=== PATIENT | male | born 1945 | race Caucasian/White ===

== ENCOUNTER 2016-11-04 18:10 | Inpatient (IN) | payer OTHER, MEDICARE ==
[~2016-11-04] VITALS: Ht 165.1 cm; Wt 123.0 kg
--- NOTE | ~2016-11-04 | LTR ---
PATIENT'S NAME: SIMEON FOWLER [facility] AGE: 71 Y [address] ROOM: [address] [address] LOCATION: [facility] ADMIT DATE: 11/04/2016 Letter DISCHARGE DATE: FAMILY PHYSICIAN: Low Alston MD ATTENDING PHYSICIAN: ESSENCE GODFREY November 08, 2016 To whom it May Concern: Re: SIMEON FOWLER whose date of is 1945 has been hospitalized from the dates of 11/04/2016 to current. His diagnoses include encephalopathy and grade 3 astrocytoma. The patient is having erratic behaviors. He has been deemed unable to make his own medical decisions due to lack of cognitive capacity. For his own safety and sustainability, we are requesting guardianship to be placed as soon as possible. Mr. Fowler will need 24-hour caregivers likely in the form of retirement facility setting. Sincerely, CHRISTIANO Jackson/kevon /[id number]
--- NOTE | ~2016-11-04 | PN ---
PATIENT'S NAME: SIMEON STERLING [facility] AGE: 71 Y [address] ROOM: [id number] [place], [place] [address] [place] [facility] [place] DATE: 11/04/2016 [facility] Progress Notes DISCHARGE DATE: FAMILY PHYSICIAN: Low Alston MD ATTENDING PHYSICIAN: ESSENCE GODFREY Corrected Patient account information per dictator 11/16/16 AO DATE OF SERVICE: 11/06/2016 REASON FOR CONSULTATION: Competency. SUBJECTIVE: This is a 71-year-old male initially under EPC at [facility], but in view of his cellulitis and multiple medical issues, was transferred to the [facility]. The patient has glioblastoma multiforme and he has been intermittently compliant with his medications. He states that he has no problems and he is ready to go home today. He has been agitated on and off and has been very impulsive. Apparently, he has not been compliant with his outpatient treatment plan. He has significant cellulitis of his legs and yet believes that he does not need any help and would like to be discharged. It was also told that he has been diagnosed with astrocytoma grade 3 brain tumor. He is irritable and agitated and requires one-to-one nursing supervision even in an inpatient care here. During my interview, he is dismissive of me and does not really cooperate. He gets frequently agitated. He does not understand why he needs to stay in the hospital. It appears that he has very poor insight into his symptoms and illness at this time. OBJECTIVE: He is awake, alert, sitting in the chair. He is irritable and agitated. He has been impulsive and agitated since the day of admission requiring one-to- one. He does appear to be somewhat paranoid. He denies any self-harm thoughts if not answer about cognition questions. His insight and judgment are impaired. 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 PLAN: We will continue the current treatment plan. However, I believe the patient is incapable of making decisions for self. I would like to have his daughter be assigned the power of employment attorney as the patient is willing to have the daughter be assigned the power of employment attorney and the power of employment attorney should be invoked, otherwise so we may have to get guardianship. I do not believe the PATIENT'S NAME: SIMEON STERLING [facility] AGE: 71 Y [address] ROOM: [place] [address] [place] [facility] [place] DATE: 11/04/2016 [facility] Progress Notes DISCHARGE DATE: FAMILY PHYSICIAN: Low Alston MD ATTENDING PHYSICIAN: ESSENCE GODFREY patient can live independently and he needs to be supervised / in the community for his safety and others. He does not need to be hospitalized to inpatient psychiatric unit at this time. Please give me a call if you have any questions. MD CHERRIE GARNETT/kevon /[id number] Corrected Patient account information per dictator 11/16/16 AO d: 11/06/162003 t: 12/04/16 09, PROGRESS NOTES
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
--- NOTE | ~2016-11-04 | ER ---
[facility] 71 Y [address] ROOM: [place] [address] LOCATION: [facility] ADMIT DATE: 11/04/2016 ER/Outpatient Report DISCHARGE DATE: FAMILY PHYSICIAN: PHYSICIAN, UNKNOWN ATTENDING PHYSICIAN: ESSENCE GODFREY Time of Arrival: 1801 hours. Time of Evaluation: 1801 hours. CHIEF COMPLAINT: Leg ulcers. HISTORY OF PRESENT ILLNESS: The patient is a 71-year-old male, who presents to the emergency department today with chief complaint of leg ulcers. Reports this started 5 days prior to arrival. The patient is currently inpatient at [facility] apparently with some agitated behavior. The patient does also have history of brain tumor with excisional brain biopsy. The ulcers have progressive . He has blisters and erythema in his bilateral lower extremities. He denies history of similar episodes in the past. PAST MEDICAL HISTORY: Brain tumor, basal cell carcinoma, coronary artery disease, hypertension, dyslipidemia. PAST SURGICAL HISTORY: Excisional brain biopsy, appendectomy, back, hemorrhoid, CABG 8 years ago. SOCIAL HISTORY: The patient denies any tobacco, alcohol, or illicit drug use. ALLERGIES: NO KNOWN DRUG ALLERGIES. MEDICATIONS: Please see list. PRIMARY CARE DOCTOR: In [place]. REVIEW OF SYSTEMS: All systems are reviewed by myself and are negative with the exception of those discussed in the HPI and past medical history. PHYSICAL EXAMINATION: [facility]GE[facility] 71 Y [address] ROOM: [place] [address] LOCATION: [facility] ADMIT DATE: 11/04/2016 ER/Outpatient Report DISCHARGE DATE: FAMILY PHYSICIAN: PHYSICIAN, UNKNOWN ATTENDING PHYSICIAN: ESSENCE GODFREY VITAL SIGNS: Weight 117.6 kg, blood pressure 241/106, pulse 101, respiratory rate 16, temperature 98.3, oxygen saturation 95% on room air. GENERAL: The patient is a 71-year-old male, who appears stated age, in no acute distress at this time. Obese. HEENT: Normocephalic, atraumatic. Pupils are equal, round, and reactive to light and accommodation. Extraocular motions are intact. Nares are patent bilaterally. NECK: Supple. There is no nuchal rigidity. CARDIOVASCULAR: Tachycardic, no murmurs, rubs, or gallops. LUNGS: Clear to auscultation bilaterally. No wheezes, rales, or rhonchi. ABDOMEN: Soft, nontender, and nondistended. No rebound, rigidity, or guarding. MUSCULOSKELETAL: The patient moves all 4 extremities. NEUROLOGICAL: GCS of 15. Alert and oriented to person, place, time, not president. SKIN: The patient has bilateral lower extremities with erythematous rash and pustules noted. There are also larger areas, that appear fluid-filled. LABORATORY DATA AND X-RAYS: Labs and x-rays are obtained. Lactate 4.3. Procalcitonin 0.05. CBC: White blood cell count 22.5, otherwise unremarkable. CMP is unremarkable except for glucose 290, BUN 37, creatinine 1.3. AST is 42, ALT is 83. IMPRESSION: 1. Acute bilateral lower extremity cellulitis. 2. Suicidal ideation. 3. History of brain tumor. 4. Initial visit. EMERGENCY DEPARTMENT COURSE: The patient was brought back to the examination room. Seen and evaluated by myself. IV is established. Laboratory analysis and imaging are obtained as described above. I have discussed results with the patient. I have contacted Dr. Gdofrey with the Hospitalist Service. He has seen and evaluated the patient here in the emergency department. I have initiated a 4.5 g of Zosyn IV as well as a 2 g of vancomycin IV. He was given a liter of normal saline. The patient is agreeable with plan without further questions at this time. DISPOSITION: The patient is admitted under the care of Hospitalist Service, Dr. Godfrey, in stable condition. PATIENT'S NAME: SIMEON STERLING [facility] AGE: 71 Y [address] ROOM: [address] [place] [id number] LOCATION: [facility] ADMIT DATE: 11/04/2016 ER/Outpatient Report DISCHARGE DATE: FAMILY PHYSICIAN: PHYSICIAN, UNKNOWN ATTENDING PHYSICIAN: ESSENCE GODFREY DO KJR/medl /[id number] P d: 11/05/16 0208 t: 11/10/16 1322, OUTPATIENT REPORT
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
--- NOTE | ~2016-11-04 | DS ---
PATIENT'S NAME: SIMEON STERLING [facility] AGE: 71 Y [address] ROOM: [id number] [place] [address] LOCATION: [facility] [place] ADMIT DATE: 11/07/2016 Discharge Summary DISCHARGE DATE: 11/18/2016 FAMILY PHYSICIAN: Low Alston MD ATTENDING PHYSICIAN: Darrion Vera DISCHARGE DIAGNOSES: 1. Bilateral lower extremity cellulitis-strep Stenotrophomonas maltophilia and Staph epi. 2. Major depression disorder with suicidal ideation. 3. Grade III astrocytoma. 4. Acute encephalopathy. 5. Diabetes mellitus type 2. 6. Fever. CONSULTANTS: Joleen Tran APRN, Palliative Care, Ethics consultation, Psychiatry. HOSPITAL COURSE: Please refer to admitting history and physical as dictated by Dr. Vera. Briefly, the patient was admitted to [facility] after he was sent to [facility] for suicidal ideation under EPC. While at [facility], he was found to have bilateral lower extremity cellulitis, hypertension, and a grade III astrocytoma. He was started on vancomycin and Zosyn for IV antibiotics. Sliding scale was used for his diabetes. His home medications were restarted. Wound Care followed the patient for his lower extremity cellulitis. MRI of the brain was ordered; however, the patient refused; therefore, it was not able to be obtained. Psych consult was placed to Dr. Muñoz and he was found to be incapable of making decisions for himself. The daughter Gregorio Jasso was made the [id number] after obtaining documents. It was recommended that he have 24 care. He was started on Seroquel. Due to his brain tumor, grade III astrocytoma, and the encephalopathy, it was not felt as though he is able to make his own decisions. The patient was agitated with the cares throughout his stay. The patient began to refuse all medications and cares by providers. He was refusing to eat. He pulled out his IV; therefore, there was no further IV access for cares. Without the IV access, he was started on doxycycline 100 mg p.o. b.i.d. for his bilateral lower extremity cellulitis. Wound cultures of his legs did grow Stenotrophomonas maltophilia and Staph epi. Anesthesia was consulted and was given Haldol 5 mg IM as well as Haldol Decanoate 50 mg IM and Zyprexa. He was then started on Rocephin IM. The patient would take it sporadically. Palliative Care was consulted. Palliative Care did work closely with the family throughout his stay. ROSITA Perkins did not feel as though she wanted forced medications or treatment if he was refusing, we could continue to offer it however. Ethics consult was obtained due to the difficulty with finding placement for the patient as well PATIENT'S NAME: SIMEON STERLING [facility] AGE: 71 Y [address] ROOM: [address] [address] LOCATION: [facility] [place] ADMIT DATE: 11/07/2016 Discharge Summary DISCHARGE DATE: 11/18/2016 FAMILY PHYSICIAN: Low Alston MD ATTENDING PHYSICIAN: Darrion Vera as concerns for sepsis and psychiatric needs. It was recommended by the Ethics team to clarify the brain tumor diagnosis and prognosis, talk with the daughter about goals of treatment, and explore the potential for involvement of hospice. His grade III astrocytoma was found to be aggressive. He had been refusing treatment for the brain tumor. On 11/18/2016, the patient was having suicidal ideation. Palliative Care did again discuss with the POA the situation and the patient refusing home medications and she is agreeing to stop medications except for comfort meds. After discussion with the Palliative Care team and hospitalist, it was felt as though he was stable to transfer to [facility] with hospice for end-of-life cares. The patient had stated numerous times he wanted to be able to get up and walk around as able; therefore, it was felt as though this was the best option for him to give him some quality of life given his terminal diagnosis. Palliative Care will continue to follow while at [facility] with hospice. At the time of discharge, the patient had been refusing to eat and take all medications or cooperate with cares. Dr. Contreras did speak wit his daughter Yamileth on the day of transfer to [facility]. LABORATORY DATA: Sodium remained within normal limits, potassium ranged from 3.1 to 4.0, BUN 15 to 37, creatinine 1.1 to 1.4, albumin 2.1, alk phos 104, AST 25, ALT 51, phos 3.8, GFR 54, upon admit, 59, most recent prior to discharge, CRP 5.63, WBC 7.4 to 22.5, hemoglobin 12.0 to 13.4, hematocrit 35.5 to 40.3, and platelets 138. ESR 54. UA nitrites negative, protein 100, glucose 250, ketones 5, and bacteria few. Left lower extremity wound cultures grew Stenotrophomonas maltophilia and Staphylococcus epidermidis. Blood cultures, no growth at 5 days. RADIOLOGY REPORTS: Chest x-ray done 11/04/2016 showed past cardiac surgery, no vascular congestion, linear atelectasis or scarring at the left costophrenic angle. DISCHARGE INSTRUCTIONS: The patient will be transferred to [facility]. Diet as tolerated. Activity as tolerated. Palliative Care to continue to follow. Hospice consult for end-of-life cares. DISCHARGE MEDICATIONS: All medications were discontinued except for those to provide comfort: 1. Ativan 2 mg rectally q.2 h. p.r.n. seizures. 2. Tylenol 650 mg p.o. q.4 h. p.r.n. pain or fever. 3. Roxanol 20 mg/mL, 5-10 mg p.o./sublingual every 1 hour p.r.n. pain or shortness of breath. Thank you for allowing us to participate in the care of this patient as he has been hospitalized at [facility]. Time spent coordinating discharge was 35 minutes. PATIENT'S NAME: SIEMON STERLING [facility] AGE: 71 Y [address] ROOM: [place] [address] LOCATION: [facility] [place] ADMIT DATE: 11/07/2016 Discharge Summary DISCHARGE DATE: 11/18/2016 FAMILY PHYSICIAN: Low Alston MD ATTENDING PHYSICIAN: Darrion Vera HANNAH KAHN APRN FOR MD LUZMARIA INGRAM/kevon /[id number] d: 11/19/16 0323 t: 11/23/16 1212, DISCHARGE SUMMARY
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
[~2016-11-04 18:10] MED LIST changes: -ATIVAN 0.5MG0.5 MG PO/R; -MORPHINE 20MG/ML PO/SUBLING; -TEMODAR140 MG PO; -TEMOZOLOMIDE20 MG PO; -TYLENOL325 MG PO
[2016-11-04 18:45] LABS: HEMATOCRIT 40.3 % (37.0-53.0); HEMOGLOBIN 13.4 g/dL (11.0-16.0); MCH 28.5 pg (27.0-34.0); MCHC 33.3 gm/dL (32.0-36.5); MCV 85.6 fl (83.0-98.0); PLATELET COUNT 205 K/uL (150-450); RBC 4.71 M/uL (3.50-5.50); RDW-CV 17.1 % (11.9-14.6)
[2016-11-04 18:46] LABS: WBC 22.5 K/uL (4.0-11.0)
[2016-11-04 19:21] LABS: ABSOLUTE NEUTROPHIL CT (ANC) 17.8 K/uL (1.4-9.0); LYMPHOCYTE # 3.8 K/uL (0.8-4.0); LYMPHOCYTE % 17 %; MONOCYTE # 0.7 K/uL (0.0-1.0); SEGMENTED NEUTROPHIL # 17.8 K/uL (1.4-9.0); SEGMENTED NEUTROPHIL % 79 %
[2016-11-04 19:33] LABS: ALBUMIN 2.6 gm/dL (3.5-5.0); ANION GAP 18.9 (10.0-19.0); CALCIUM 8.5 mg/dL (8.5-10.5); CREATININE 1.3 mg/dL (0.6-1.3); POTASSIUM 3.9 mMol/L (3.7-5.1); TOTAL BILIRUBIN 0.3 mg/dL (0.0-1.5); TOTAL PROTEIN 5.4 g/dL (6.0-8.4)
[2016-11-04 21:09] LABS: BILIRUBIN URINE NEGATIVE (NEGATIVE); BLOOD URINE 150 /UL (NEGATIVE); GLUCOSE URINE 250 mg/dL (NEGATIVE); KETONE URINE 5 mg/dL (NEGATIVE); LEUKOCYTES URINE NEGATIVE /UL (NEGATIVE); NITRITE URINE NEGATIVE (NEGATIVE); PROTEIN URINE 100 mg/dL (NEGATIVE); UROBILINOGEN URINE NORMAL (NORMAL)
[2016-11-04 21:41] LABS: COLOR URINE YELLOW (YELLOW); TURBIDITY URINE 1+ (CLEAR)
[2016-11-04 21:43] LABS: BACTERIA URINE FEW (NEGATIVE); EPITHELIAL URINE 0-2 #/HPF (NEGATIVE); GRANULAR CASTS URINE 0-2 #/LPF (NEGATIVE); MUCUS URINE 1+ (NEGATIVE); WBC URINE 0-2 #/HPF (NEGATIVE)
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
[2016-11-05 05:47] LABS: HEMOGLOBIN 12.7 g/dL (11.0-16.0); MCHC 32.6 gm/dL (32.0-36.5); MCV 85.9 fl (83.0-98.0); MPV 11.1 fl (9.4-12.4); PLATELET COUNT 167 K/uL (150-450); RBC 4.54 M/uL (3.50-5.50); RDW-CV 17.1 % (11.9-14.6)
[2016-11-05 05:48] LABS: WBC 16.8 K/uL (4.0-11.0)
[2016-11-05 06:05] LABS: ANION GAP 11.7 (10.0-19.0); BLOOD UREA NITROGEN 35 mg/dL (6-24); CALCIUM 8.2 mg/dL (8.5-10.5); CHLORIDE 106 mMol/L (96-110); CO2 28 mMol/L (22-32); CREATININE 1.1 mg/dL (0.6-1.3); ESTIMATED GFR (MDRD EQUATION) > 60; SODIUM 142 mMol/L (135-145)
[2016-11-05 06:08] LABS: POTASSIUM 3.7 mMol/L (3.7-5.1)
[2016-11-05 06:41] LABS: ABSOLUTE NEUTROPHIL CT (ANC) 14.3 K/uL (1.4-9.0); BANDED NEUTROPHIL # 0.7 K/uL (0.0-0.1); BANDED NEUTROPHILS % 4 %; LYMPHOCYTE # 1.3 K/uL (0.8-4.0); LYMPHOCYTE % 8 %; SEGMENTED NEUTROPHIL # 13.6 K/uL (1.4-9.0); SEGMENTED NEUTROPHIL % 81 %
[2016-11-05] MEDS ORDERED: ATIVAN 0.5MG0.5 MG PO/R (10:03)
[2016-11-05] MEDS ORDERED: TEMOZOLOMIDE20 MG PO (10:04)
[2016-11-05] MEDS ORDERED: TEMODAR140 MG PO (10:04)
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
--- NOTE | 2016-11-05 19:04 | NUR ---
Significant Event: SEEN BY [facility] NURSE THIS AM, ORDERS FOR OINTMENT, GAUZE AND PAUL WRAP TO BILATERAL LOWER LEGS. DRESSINGS APPLIED AT 1330, NOTE LEGS WEEPING. DENIES PAIN WHEN ASKED. TO HAVE MRI OF BRAIN, AND PATIENT REFUSED TO HAVE MRI DONE, DR. LIM NOTIFIED. ACCUCHECKS 154, 359 AND 185, NEW INSULIN ORDERS RECEIVED SEE ORDERS. UP AD SOPHIA WITH SBA. 1:1 OBSERVATION. COOPERATIVE WITH CARES. Follow up: PSYCH CONSULT ORDERED.
--- NOTE | 2016-11-06 05:20 | NUR ---
Significant Event: Dressing changed at HS. Pt refused to have kerlix wrap applied and was left open to air. Unable to sleep much and 1 time dose of benadryl ordered with little sleep the rest of the evening. Took shower at 0445 this morning. Cont IV antibiotics. Follow up: 1:1 and EPC.
--- NOTE | 2016-11-06 16:18 | NUR ---
Significant Event: Patient is alert and oriented, however he tells me statments that dont make sense and gets confused easily. Brain tumor. Cynthia doctor rounded and he did not pass- he cannot make decisions for himself. Refusing the cardiac diet- called and changed to regular, this made the patient pleased. Changed insulin orders. Seroquel ordered for HS, may give second dose PRN Agitation/Insomnia. Dressing changed this morning. Denies pain. Continues 1:1 observation. Family visted this afternoon. IV to the L)FA, IV ABX. Good blood return. Next IV vanco is due at 1900. Up with SBA. Cooperative with cares. No aggressive behaviors towards staff Follow Up: 1:1 observation, IV ABX
--- NOTE | 2016-11-07 05:17 | NUR ---
Significant Event: Pt alert and oriented. Gets confused easily about whats going on. Can get agitated if told no. No aggressive behaviors towards staff and has been cooperative with cares. Seroquel given at HS with little help with sleep, so another dose was given which was a little more effective. Dressings changed at HS. Cont IV antibiotics. Cont 1:1. Follow up:
[2016-11-07 05:36] LABS: ALBUMIN 2.3 gm/dL (3.5-5.0); BLOOD UREA NITROGEN 35 mg/dL (6-24); CHLORIDE 110 mMol/L (96-110); CO2 21 mMol/L (22-32); CREATININE 1.1 mg/dL (0.6-1.3); ESTIMATED GFR (MDRD EQUATION) > 60; MAGNESIUM 2.2 mg/dL (1.3-2.6); PHOSPHORUS 3.2 mg/dL (2.5-4.9); SODIUM 141 mMol/L (135-145)
--- NOTE | 2016-11-07 16:49 | NUR ---
Significant Event: Patient is alert and oriented. Gets confused easily about what is going on, hx of brain tumor. VSS and on RA. More agitated today. Bumex x2 doses. Legs are weeping more today. Labs at 2200 we are to call the results to Dr. Garrison. Dr. Mcmanus to see in the AM. Daily weight and strict I/O. Increasing levemir at HS. Accuchecks AC/HS. Needed coverage for each time. Carb count. Refused shower. IV to the L)FA, SL. Follow up: Labs at 2200, Dr. Mcmanus Consult in the AM.
[2016-11-07 22:24] LABS: ALBUMIN 2.7 gm/dL (3.5-5.0); ANION GAP 17.9 (10.0-19.0); CALCIUM 8.1 mg/dL (8.5-10.5); CREATININE 1.3 mg/dL (0.6-1.3); MAGNESIUM 2.1 mg/dL (1.3-2.6); PHOSPHORUS 3.5 mg/dL (2.5-4.9); POTASSIUM 3.9 mMol/L (3.7-5.1)
--- NOTE | 2016-11-08 04:42 | NUR ---
Significant Event: Pt continues 1:1 monitoring. Has brain tumor. Continues on IV antibiotics for leg ulcers. New IV started to right upper arm and is saline locked. Gets agitated at times, and other times very pleasant. Strict I&O's hard to obtain as pt takes the hat out of the toilet at times. Dressing changes BID to lev lower legs. Psych consulted and determined pt unable to make own decisions. CM for placement. Follow up:
[2016-11-08 05:43] LABS: ALBUMIN 2.4 gm/dL (3.5-5.0); ANION GAP 12.5 (10.0-19.0); CALCIUM 7.9 mg/dL (8.5-10.5); CREATININE 1.2 mg/dL (0.6-1.3); MAGNESIUM 2.2 mg/dL (1.3-2.6); PHOSPHORUS 3.9 mg/dL (2.5-4.9); POTASSIUM 3.5 mMol/L (3.7-5.1)
--- NOTE | 2016-11-08 10:10 | NUR ---
1010 Gave an example letter to Tabitha Wan for suggesting a guardianship that her and Dr Garrison can work on and return to me.
--- NOTE | 2016-11-08 12:24 | NUR ---
Received call from daughter Yamileth Fowler asking for update on pt condition. Gave her an update and discussed dc planning, we will work on getting letter from physician that pt not capable of making own decisions (psychiatry did eval for this) that she can take to manager diesel to work on getting guardianship, she is willing to do this. In the meantime, will also be working on finding SNF that can accept, may not be an easy task with history, may not be close to [place], she is understanding. Did discuss that pt may qualify for short skilled stay but won't be long and needs to apply for Medicaid or get finances in order, daughter will help her mom with that, asked her to get that started in next couple of days online. She voices understanding. Let her know Neyda, childcare center director will be calling her when we get letter together to get to her, and that Neyda will be following, she is okay with this.
--- NOTE | 2016-11-08 20:02 | NUR ---
Significant Event: Patient alert and oriented but is irritable and angry at times. Patient states several times throughout the day that "this place is stupid" and that "I want to go back to [place]" but then can be very pleasant and cooperative. K+ level at 3.5 and patient refused KCL 40 meq orally. New order to give KCL 40 meq IV over 4 hrs. Continues on IV Vancomycin and Zosyn. IV to his R) upper arm. Pitting edema with several sores noted to his bilateral lower legs and are very weepy. Dressing changed this afternoon. Up to the bathroom with assist to void. Started on subq Heparin q 8hr and patient received Bumex 2 mg IV at 1700 and repeat in 4 hrs. Follow up: 1:1 observation
[2016-11-09 05:58] LABS: ALBUMIN 2.5 gm/dL (3.5-5.0); ANION GAP 15.8 (10.0-19.0); CALCIUM 7.8 mg/dL (8.5-10.5); CREATININE 1.4 mg/dL (0.6-1.3); PHOSPHORUS 3.8 mg/dL (2.5-4.9)
[2016-11-09 05:59] LABS: POTASSIUM 3.8 mMol/L (3.7-5.1)
--- NOTE | 2016-11-09 07:24 | NUR ---
Significant Event:PT IS ORIENTED BUT HAS BEEN DEEMED UNABLR TO MAKE DECISIONS FOR HIM SELF DUE TO BRAIN TUMOR. PT HAS WOUNDS TO YASH LOWER LEGS THANTNEED WRAPED W/ KERILIX AND THEN PAUL WRAPS APPLIED DURING THE DAY, OFF AT NIGHT WOUNDS ARE WEEPING. PT HAS IV TO L HAND 22 GAUGE W/ IV ABX RUNNING. ACCUCHEKCS AC/HS W/ BS BEING 212 LAST NIGHT. PT CAN BECOME VERY AGGITATED AT TIMES AND IS S ELOPEMENT CONCERN SO IS A 1:1. PT DID FALL LAST NIGHT -WENT DOWN ON HIS RIGHT KNEE. PT DENIED ANY PAIN . PT'S DAUGHTER WAS NOTIFIED THIS MORNING, ARCADIO GAVE CONTACT INFO FOLLOWS, [phone], WORK [phone], CELL PHONE WILL NOT BE ON DURING THE DAY. Follow up:DRESSING CHANGES TO LEGS BID, CREAM IS IN THE MED ROOM.
--- NOTE | 2016-11-09 12:57 | NUR ---
A-SCREENED D/T LOS HX OF BRAIN TUMOR; REFUSING TX. PITTING EDEMA TO BLE; WOUNDS TO BLE HT: 65 IN. ADMIT WT: 117.6 KG. CBW 120.5 KG. BMI 43.1 LABS: NA 141, K+ 3.8, GLU 212, BUN 35, PHARMACY OPERATIONS SPECIALIST 1.4, ALB 2.5. ACCUCHECKS 178-359 MEDS: NOVOLOG (MOD SS), KEPPRA, ZOSYN, BUMEX, SEROQUEL, LEVEMIR, PROTONIX, ZESTRIL, DECADRON, VANCOMYCIN DIET RX: REGULAR. PO INTAKE 75-100% EST NUTR NEEDS: 4802-8092 KCALS (15-20 KCALS/KG) 93-124 GM PROTEIN (1.5-2.0 GM/KG IBW) 1 ML FLUID/KCAL D-AT NUTRITION RISK W/INCREASED PROTEIN NEEDS R/T ALTERED SKIN INTEGRITY AEB WOUNDS TO BLE. I-1)ADD JUDY BID TO L/D M/E-GOAL: PO INTAKE >/=75% FOR DURATION OF ADMIT 1)F/U PO INTAKE, SUPPLMENT, SKIN, AND POC IN 3-5 DAYS 2)ASSIST NEEDED
--- NOTE | 2016-11-09 13:35 | NUR ---
Called [facility]mission line and spoke to Rosemary # . Gave them referral information. CONCHITA came back a level 1. 1445 Faxed referral information to their admission hotline #[phone]. Per acute care nurse practitioner Joanne Rodriguez will here tomorrow to assess patient, she talked to her today.
--- NOTE | 2016-11-09 14:50 | NUR ---
Significant Event: Pt denies pain. Dressings to bilaterial lower leg rodriguez were falling off and saturated with sero/sang drainage. Showered and dressings reapplied (with porfirio wraps which are on during the day, off at night) Pt confused and impulsive, agitated at times with staff. [facility], new order for Seroquel BID, give a dose now (1450). continues on 1:1 staff for safety. Follow up:
--- NOTE | 2016-11-10 04:11 | NUR ---
Significant Event:pt is alert but can get aggitated at times. iv to l ac has good blood return. accuchecks ac/hs w/ carb count. bs was 204 with 4 units given. pt had sores to lev lower legs but no c/o pain. legs are to have ointment applied and dressings changed bid. during the day they are to have porfirio wraps over the kerlix. sores are weeping. pt is in 1:1 supervision. pt refuses assistance. pt did fall the morning of thursday 11/09 when getting off scale. pt has been hypertensive. pt will refuse meds. Follow up:1:1 sitter
--- NOTE | 2016-11-10 12:20 | NUR ---
Joanne from [facility] called, here to assess patient. Let her know we were working on med adjustments and trying to get a therapeutic level to help him with behaviors related to the tumor.
--- NOTE | 2016-11-10 18:30 | NUR ---
Significant Event: Patient continues to be confused. Refused a.m. medications except for antibiotics and nurse also able to give bumex, but refused all oral pills. Called Dr. Garrison and let her know of this and she said to make sure to document it. Refused lunch stating didn't want to eat. At 1525, tried to hang patient's IV antibiotic, but patient refused becoming paranoid that we are trying to kill him here and that he wanted to talk to his brother or aerodynamics teacher. Patient agitated and refusing to answer questions so security called and also omid Munson nurse and they were able to talk to him and get him calmed down. Only med that [facility] was able to get patient to take was his heparin. Dr. Garrison also notified when patient became agitated and came up and ordered a dose of haldol, but patient refused it. Bill RN nurse manager transportation went in and tried to talk to patient and asked if we could restart IV as patient had accidentally pulled it out. Patient refused and Bill called Dr. Garrison and she gave orders to stop IV antibiotics and put patient on oral doxycycline. Order faxed down to pharmacy but have not seen it yet. When nurses went in room to introduce oncoming nurse patient wanting to call his . Told patient that we didn't have her number and would have to talk with the daughter and get it. Patient stating at this time that his would come and get him and take him to a better hospital than this and one that would do something for him. When asked what we could do to help him he said you can let me talk to my . Follow up: Continue to monitor.
--- NOTE | 2016-11-10 22:18 | NUR ---
Patient refusing all cares tonight. Was aggitated with staff upon shift change, so charge nurse and I agreed to let patient settle down and I asked charge to go in with me when i was going to do my assessment. After patient got up to bathroom we went in to assess patinet, give meds and take vitals. Patient immediately started raising his voice and yelled "get out". Offered meal, and fluids and patient again yelled "Get out". WOuld not let me assess him, take vitals or take meds. Just kept yelling "get out". No cares have been done except 15 min checks because patient will not allow.
--- NOTE | 2016-11-11 05:00 | NUR ---
Significant Event: Patient upset when staff enters room. Yells at staff to get out of room and would not let staff assess, give meds, take vitals or take accucheck this shift. Voids adequate. 15 min checks. Can get agitated easily. No IV access, was told that Hospitalist is aware. Lab stated they would come back possibly when family was here, make sure to call. Waiting for placement. Follow up:
--- NOTE | 2016-11-11 09:15 | NUR ---
Joanne from [facility] called and none of their SNF's will be able to meet patients needs. 1140 Updated Isela Joshi. She is requesting another psych eval.
--- NOTE | 2016-11-11 17:09 | NUR ---
Patient refused everything today. He would not let us do VS, assessments, meds, accuchecks, or let us in the room. He refused to see the physicians. He wants to see his battery assembler dry cell and go to [facility].
--- NOTE | 2016-11-12 04:48 | NUR ---
Significant Event: Alert and oriented x 3. When I entered the room at 1844 he shouted what is this , it was his dinner tray. He said get it the out of here he didn't order it. He refused to let me assess him and or take his VS. Requested to call daughter at 2044, the phone was dialed and handed to him with daughter online. He refused to take even meds said get out of here I didn't ask for your help. Was quite the rest of the night sleeping and sitting in his chair. Refused to let me do a second assessment. Follow up:
--- NOTE | 2016-11-12 08:25 | NUR ---
Left a message for nursing home social worker at [facility] in the Psych Unit. [phone] Cat called me back. She didn't think he sounded appropriate for their unit at it was more medical then psych but agreed to look at the info. Would not be able to take today regardless or over the weekend. Faxed referral #[phone]. Updated Isela on [facility]. May need to get him EPC'd inorder for them to consider.
--- NOTE | 2016-11-12 15:10 | NUR ---
A-NURTRITION F/U PT IS REFUSING ALL TX, MEDS, FOOD. PER CHART REVIEW, HE BELIEVES THE MEDS AND FOOD ARE POISON. NO NEW LABS MEDS: BENADRYL, ATIVAN, HALSOL, SEROQUEL, DOXYCYCLINE, ALDACTONE, BUMEX DIET RX: REGULAR W/JUDY BID AT L/D. REFUSED ALL MEALS SINCE 11/10. EST NUTR NEEDS: 4512-8592 KCALS AND 93-124 GM PROTEIN D-AT NUTRITION RISK W/INADEQUATE ORAL INTAKE R/T ALTERED MENTAL STATUS AEB CHART REVIEW, REFUSING MEDS, TX, AND FOOD, INTAKE RECORDS. ALSO AT NUTRITION RISK W/INCREASED NUTRIENT NEEDS R/T ALTERED SKIN INTEGRITY AEB WOUNDS TO BLE. I-1)D/C JUYD BID 2)ADD ENSURE ENLIVE TID W/MEALS M/E-GOAL IS FOR PT TO ACCEPT FOOD/FLUID 1)F/U PO INTAKE, MENTAL STATUS, AND POC IN 3-5 DAYS 2)IF ENTERAL NUTRITION DESIRED, WILL MAKE RECOMMENDATIONS AT THAT TIME. 3)ASSIST NEEDED
--- NOTE | 2016-11-12 16:38 | NUR ---
Significant Event: PT ALERT, ORIENTED TO PERSON. NO IV ACCESS, ORDERS FOR 15 MIN CHECKS. ACHS ACCUCHECKS, HAS REFUSED. HAS REFUSED ALL MEDS TODAY. REFUSED BREAKFAST, DID TALK HIM INTO ORDERING SOME LUNCH, UNABLE TO SEE WHAT ATE THOUGH, HE TOLD ME NOT TO TOUCH IT. DID DRINK 1 CAN OF PEPSI. KEEPS SAYING TO GO CALL THE ORALIA WHO IS COMING TO KILL HIM TONIGHT, AND THAT WE ALL WANT HIM SO HE IS GOING TO , THAT NOBODY IS HELPING HIM. UP INDEPENDENT IN ROOM. CM IS WORKING ON DISCHARGE PLAN. DAUGHTER IS TEMPORARY POA. Follow up: 15MIN CHECKS, SAFETY
--- NOTE | 2016-11-13 05:51 | NUR ---
Significant Event:PT IS REFUSING ALL CARES AND MEDS. PT HAS NO IV ACCESS. PT ON 15 MIN CHECKS. PT HAS BEEN SLEEPING ALL SHIFT. GET IRRITATED WHEN STAFF ENTER ROOM. PT IS TIRED OF EVERYTHING AND JUST WANTS IT TO END BUT DOES NOT HAVE ANY PLAN TO KILL HIMSELF. PT IS UP IND IN ROOM, HAS MADE NO ATTEMPT TO LEAVE. ATTEMPTED TO CALL DAUGHTER , LEFT MESSAGE, NO RESPONSE. YASH LEG WRAPS WERE INTACT LST TIME PT ALLOWED ME TO LOOK. DAUGHTER HAS TEMPORARY POA AND CM IS LOOKING FOR POSSIBLE PLACEMENT. Follow up:
[2016-11-13 18:07] LABS: BASOPHIL % 0.1 %; EOSINOPHIL # 0.1 K/uL (0.0-0.5); EOSINOPHIL % 1.1 %; HEMATOCRIT 35.5 % (37.0-53.0); IMMATURE GRANULOCYTE # 0.1 K/uL (0.0-0.3); IMMATURE GRANULOCYTE % 1.9 %; LYMPHOCYTE # 0.9 K/uL (0.8-4.0); LYMPHOCYTE % 12.8 %; MCH 28.7 pg (27.0-34.0); MCHC 33.8 gm/dL (32.0-36.5); MCV 84.9 fl (83.0-98.0); MONOCYTE # 0.4 K/uL (0.0-1.0); MONOCYTE % 5.9 %; MPV 10.9 fl (9.4-12.4); NEUTROPHIL # (ANC) 5.8 K/uL (1.4-9.0); NEUTROPHIL % 78.2 %; NRBC % 0 /100WBC (0-0.00); PLATELET COUNT 138 K/uL (150-450); RBC 4.18 M/uL (3.50-5.50); RDW-CV 17.3 % (11.9-14.6); WBC 7.4 K/uL (4.0-11.0)
[2016-11-13 18:25] LABS: ALBUMIN 2.1 gm/dL (3.5-5.0); ANION GAP 15.1 (10.0-19.0); CALCIUM 7.9 mg/dL (8.5-10.5); CREATININE 1.2 mg/dL (0.6-1.3); POTASSIUM 3.1 mMol/L (3.7-5.1); TOTAL PROTEIN 5.3 g/dL (6.0-8.4)
[2016-11-13 18:27] LABS: TOTAL BILIRUBIN 0.5 mg/dL (0.0-1.5)
--- NOTE | 2016-11-13 19:12 | NUR ---
Patient refused all vital signs and assessments this morning and first half of the afternoon. Dr. Pabon put in an order for anesthesia to sedate patient so we could look at his legs and give him psych medication. After a long discussion with the patient, with security in the room, anesthesia gave 10mg of Zyprexa IM in the L) thigh. Rocephin was ordered IM along with Haldol and Haldol Decan. At shift change, RN and night RN along with the charge nurses were able to give all three medications and obtain the wound culture. IV was not able to be put in. Patient is more calm but is not very pleasant.
--- NOTE | 2016-11-14 02:23 | NUR ---
Significant Event: Patient allowed 4 nurses to give him his antibiotics and Haldol at start of shift, we also were allowed to check his blood sugar at HS. However he would not allow any vitals to be taken and told this nurse to leave or he would piss on her. Has rested quietly in his bed, up to bathroom ad-carmita. 15 minute checks. Follow up: Continue to monitor.
--- NOTE | 2016-11-14 15:33 | NUR ---
Patient was cooperative to a point this morning. He allowed staff to take blood sugars for lunch and breakfast, and to have vital signs taken this morning. He ate breakfast and refused lunch. Allowed staff to give him heparin this afternoon. Has slept the majority of the day.
--- NOTE | 2016-11-15 05:42 | NUR ---
Significant Event:Patient allowed this nurse to give him his Rocephin last evening at 2030 but not the decadron or any other meds, vitals, or blood sugars. Had one can of pop last night. Offered a sandwich and other food but patient refused all offers. Up ad-carmita to bathroom. Denies any needs. Sleeps most of the night. Follow up: Possible ethics consult-Woc consult.
--- NOTE | 2016-11-15 14:30 | NUR ---
Spoke to Joleen Tran - updated her on patient. She was working on the Ethics Consult.
--- NOTE | 2016-11-15 14:30 | NUR ---
A-NUTRITION F/U PT CONTINUES TO REFUSE MOST MEDS, TX, AND FOOD. LAST BM 11/10 LABS (11/13)- NA 141, K+ 3.1, GLU 176, BUN 15, CORRECTIONAL PROGRAM OFFICER 1.2, ALB 2.1, CRP 5.63 MEDS: ROCEPHIN, DECADRON DIET RX: REGULAR W/ENSURE ENLIVE TID. PT HAS REFUSED EVERY MEAL, BUT TWO SINCE LAST F/U ON 11/12. NURSING IS OFFERING FOOD IN BETWEEN MEALS, BUT PT REFUSES. PT DID DRINK A CAN OF POP LAST NIGHT. EST NUTR NEEDS: 8477-0766 KCALS AND 93-124 GM PROTEIN D-AT NUTRITION RISK W/INADEQUATE ORAL INTAKE R/T ALTERED MENTAL STATUS AEB CHART REVIEW, REFUSING MEDS, TX, AND FOOD AND 2)INCREASED NUTRIENT NEEDS R/T ALTERED SKIN INTEGRITY AEB WOUNDS TO BLE. I-WILL CONTINUE W/CURRENT INTERVENTIONS M/E-D/T PT REFUSING ALL INTERVENTIONS, WILL DISCONTINUE MONITORING ROUTINELY AT THIS TIME. PLEASE CONSULT WHEN NEEDED.
--- NOTE | 2016-11-15 17:07 | NUR ---
Patient allowed morning accucheck and vital signs. He did receive Rocephin IM this morning. He has refused everything else since then. He is independent in the room. Attempted to shave his face and head with an electric razor but it was not up to his standards. Refused shower today.
--- NOTE | 2016-11-16 04:00 | NUR ---
Significant Event: Patient refused all cares. Refused vital signs, this nurse's assessments, blood sugars, all medications including his IM antibiotic. Patient was offered meal and refused to eat. Up ad carmita in room. Denies any needs. 15 minute checks. Patient slept well this shift. Follow up:
--- NOTE | 2016-11-16 15:11 | NUR ---
Patient is alert. He has no IV access. Allowed us to get morning BS and vital signs. Has refused everything else. Palliative care was able to talk to him. He requested 3 Root Beers but when Dietary brought them up, he refused them saying it took too long and that he had a pop already (pointing to the one brought to him yesterday). Refused to have staff and SUSPENDER CUTTER look at legs. Suggestion is to group visits/cares. He tends to let one person look at his legs but will refuse everyone else. Maybe then he will be more cooperative.
--- NOTE | 2016-11-17 04:49 | NUR ---
SIGNIFICANT EVENT: Patient refused all meds and assessment until final attempt at 0405. VS are: 101.3, 108, 158/70 (map 98), 20, 92 on RA. Patient agreed to taking acetaminophen but delayed d/t this med not being on emar - MD contacted and new order for 650 mg acetaminophen q5H prn for pain or fever. Patient refused med at this time d/t delay. Alert but difficult to determine orientation d/t agitation/uncooperative.
--- NOTE | 2016-11-17 15:40 | NUR ---
Left a message for Lili-Director of [facility]. Inquiring about a bed.
--- NOTE | 2016-11-17 17:55 | NUR ---
Significant Event:Is alert.Unable to know about orientation.Scabs noted on lower legs.No c/o pain.Not eating much.Gets angry at times & wants to be left alone & wants to get out of here.Refused all meds & refused shower.Up in room.Would only let me put up one side of upper siderail.Temp this morning was 100.0(tympantically).Would not let me take it again. Follow up:
--- NOTE | 2016-11-18 03:40 | NUR ---
Shift Summary: Patient slept all shift except to get up to go to the BR. He refused his dinner last night. Refuses meds and assessment. Is independent in room.Waiting for placement.
--- NOTE | 2016-11-18 14:20 | NUR ---
Various communications with Joleen Tran - Palliative Care, Charge Nurse Melvina Lu - Director. Got the okay to send patient to [facility]. Called EMS to but them on standby at 1420. Dr. Ordaz is the accepting physician, Joleen called the daughter. EMS to call Tabitha on [facility] for final arrangements.
--- NOTE | 2016-11-18 15:39 | NUR ---
Spoke generally with [facility] hospice today about the above patient's situation to see if he'd meet the criteria for hospice. Brainstorming took place with them and Joleen Santos from palliative care. Joleen mentioned that Becka has made current, active suicidal statements with plans. Calls were made to Cornelius Velazquez and Yasmine with the [facility] to discuss the level of care he needs. I spoke to them about if he were accepted would they be agreeable to allowing [facility] to provide routine, supportive services and they were in favor of this. I spoke with charge nurse Tabitha and nurse Joanne to inform of possible transfer and nurse to nurse was completed. I spoke with Yasmine earlier in the day who states they prefer transfer after 1500. I then called Desmond mid-afternoon at [facility] who confirms they will accept with Dr. Ordaz as accepting material expeditor. Updated primary CM Neyda who is arranging an ambulance transfer. Joleen made contact with his daughter Yamileth for consent and is preparing Becka for the transfer. Dr. Contreras was contacted earlier in the day by Joleen as well. [facility] plans a team meeting with [facility] staff tomorrow morning to discuss care roles, etc. Anticipate transfer to [facility] within 30-60 minutes when final orders are complete.
--- NOTE | 2016-11-18 15:41 | NUR ---
PT. ADMITTED FOR CELLULITIS OF BILATERAL LEGS WITH AT LEAST 5 DRY SCABBING ULCERS ON LOWER LEGS. REFUSES ALL CARES, MEDS AND ASSESSMENTS. STATES IF HE HAD A GUN HE'D SHOOT HIMSELF. 1:1 OBSERVATION SINCE 11:30. HX OF BRAIN TUMOR. 2+ EDEMA IN LEFT LEG. UP AD SOPHIA IN ROOM AND TO BR. DENIES PAIN. LAST BM 3--17. EATING POORLY. GETS ANGRY AT TIMES. HAS SLEPT MOST OF DAY. PLAN TO TRANSFER TO [facility] AND [facility] NURSE TO NURSE REPORT CALLED.
[2016-11-18] MEDS ORDERED: TYLENOL325 MG PO (17:32)
[2016-11-18] MEDS ORDERED: MORPHINE 20MG/ML PO/SUBLING (17:35)
--- NOTE | 2016-11-22 15:13 | NUR ---
Called Lili from [facility] and left a message regarding a referral.
== END 2016-11-18 16:15 | DRG 871 ==
LOC: GMED 18:10 → GMSU 19:54 → G3N 19:54 → GMSU 19:54 → G3N 20:34 → GMSU 11-05 14:32
PROVIDERS: Emergency Medicine; Family Medicine; Internal Medicine; Physician Assistant; ADMIT Family Medicine
DX: A41.9 Sepsis, unspecified organism (principal); G93.40 Encephalopathy, unspecified; G93.6 Cerebral edema; C71.9 Malignant neoplasm of brain, unspecified; R45.851 Suicidal ideations; Z68.41 Body mass index [BMI] 40.0-44.9, adult; L03.115 Cellulitis of right lower limb; L03.116 Cellulitis of left lower limb; E03.9 Hypothyroidism, unspecified; I10 Essential (primary) hypertension; I25.10 Atherosclerotic heart disease of native coronary artery without angina pectoris; N40.0 Benign prostatic hyperplasia without lower urinary tract symptoms; F32.9 Major depressive disorder, single episode, unspecified; E11.9 Type 2 diabetes mellitus without complications; Z95.1 Presence of aortocoronary bypass graft; Z78.1 Physical restraint status
CPT/HCPCS: J0696; J0713; J1100; J1630; J1631; J1644; J2543; J3370; J3480; J7030; J7040; J7050

== ENCOUNTER → 2016-11-04 | Outpatient (CLI) | payer OTHER, MEDICARE ==
[~2016-11-04] MED LIST: ASPIRIN (CHILDR81 MG PO; ATIVAN 0.5MG0.5 MG PO/R; ATIVAN 1 MG1 MG PO; BACITRACIN OPH3.5 GM OPHTH; CRESTOR40 MG PO; DECADRON4 MG PO; DILANTIN100 MG PO; FLOMAX0.4 MG PO; KEPPRA500 MG PO; LASIX40 MG PO; LEVOTHROID (S100 MCG PO; LOPRESSOR25 MG PO; MORPHINE 20MG/ML PO/SUBLING; PRINIVIL (ZESTR20 MG PO; TEMODAR140 MG PO; TEMOZOLOMIDE20 MG PO; TOPROL XL100 MG PO; TYLENOL325 MG PO; TYLENOL650 MG R
== END | disposition disaster alternative care site (69) ==
LOC: GAMB 17:33
DX: A41.9 Sepsis, unspecified organism (principal); L97.819 Non-pressure chronic ulcer of other part of right lower leg with unspecified severity; L97.829 Non-pressure chronic ulcer of other part of left lower leg with unspecified severity; E11.9 Type 2 diabetes mellitus without complications; I10 Essential (primary) hypertension; Z79.4 Long term (current) use of insulin; Z79.52 Long term (current) use of systemic steroids; Z79.899 Other long term (current) drug therapy
CPT/HCPCS: A0425; A0429

== ENCOUNTER → 2016-11-18 | Outpatient (CLI) | payer OTHER, MEDICARE ==
[~2016-11-18] MED LIST changes: +ATIVAN 0.5MG0.5 MG PO/R; +MORPHINE 20MG/ML PO/SUBLING; +TEMODAR140 MG PO; +TEMOZOLOMIDE20 MG PO; +TYLENOL325 MG PO
== END | disposition disaster alternative care site (69) ==
LOC: GAMB 16:19
DX: R45.850 Homicidal ideations (principal)
CPT/HCPCS: A0425; A0428

== ENCOUNTER 2016-11-24 08:30 | Inpatient (IN) | payer OTHER, MEDICARE ==
[~2016-11-24] VITALS: Ht 162.6 cm; Wt 109.5 kg
--- NOTE | ~2016-11-24 | HP ---
[facility]GE[facility] 71 Y [address] ROOM: [place] [address] LOCATION: [facility] ADMIT DATE: 11/24/2016 History & Physical DISCHARGE DATE: 11/24/2016 FAMILY PHYSICIAN: Low Alston MD ATTENDING PHYSICIAN: Zaria Contreras DATE OF SERVICE: CHIEF COMPLAINT: Shortness of breath. HISTORY OF PRESENT ILLNESS: A 71-year-old gentleman with the recent diagnosis of grade 3 astrocytoma, who was recently admitted to [facility] under our care. He decided to pursue comfort cares rather than any treatment for his astrocytoma. He was admitted this morning from [facility] with increased shortness of breath. He denied having any cough or sputum production, but complained of palpitations and extreme shortness of breath. Further review of systems could not be obtained because of his severe shortness of breath. REVIEW OF SYSTEMS: Cannot be obtained because of the patient's current critical condition. Further history is per chart review. PAST MEDICAL HISTORY: Included: 1. Excisional biopsy to diagnose brain tumor. 2. Appendectomy. 3. Hemorrhoid surgery. 4. Back surgery. 5. Hypertension. 6. Basal cell carcinoma. 7. Dyslipidemia. 8. Hyperglycemia. ALLERGIES: NO KNOWN DRUG ALLERGIES. MEDICATIONS: Only on comfort care medications. FAMILY HISTORY: No history of cancer in the family. SOCIAL HISTORY: PATIENT'S NAME: [facility] AGE: 71 Y [address] ROOM: [place] [address] LOCATION: [facility] [place] ADMIT DATE: 11/24/2016 History & Physical DISCHARGE DATE: 11/24/2016 FAMILY PHYSICIAN: Low Alston MD ATTENDING PHYSICIAN: Zaria Contrears He quit smoking in 1993. PHYSICAL EXAMINATION: VITAL SIGNS: Blood pressure of 135/110, respiratory rate of 40, and saturating 78% on room air. Afebrile. GENERAL: In severe acute distress due to shortness of breath. Alert and oriented x3. HEENT: Head is atraumatic and normocephalic. Recent surgical scar crow noted. Eyes are nonicteric. No pallor. Oropharynx; dry mucous membranes. CARDIOVASCULAR: Tachycardic. S1 and S2. No murmurs, gallops, or rubs. LUNGS: Bilateral expiratory wheezes. ABDOMEN: Soft, nontender, and obese. EXTREMITIES: Did show evidence of cellulitis bilaterally. No clubbing, cyanosis, or edema in extremities noted. NEUROLOGIC: Deferred at this point. PSYCHIATRIC: Cannot be assessed at this point. SKIN: Multiple bruises noted on the lower extremities. MUSCULOSKELETAL: No muscle tenderness or joint swelling noted. LABORATORY DATA: No labs available at this point. ASSESSMENT: 1. Acute hypoxic respiratory failure. 2. Grade 3 astrocytoma. 3. Morbid obesity. 4. Hypertension. PLAN: As per known wishes of the patient, the patient will be admitted under Hospice Care for comfort cares. We will provide supplemental oxygen as well as pain as well as dyspnea medications. We are trying to contact his family. Further management will be guided by the Hospice Care. The patient is DNR/DNI and comfort cares. MD BUSHRA INGRAM/kevon /[id number] D: [id number] T: [id number] HISTORY & PHYSICAL
--- NOTE | ~2016-11-24 | DS ---
PATIENT'S NAME: SIMEON STERLING [facility] AGE: 71 Y [address] ROOM: [place] [address] LOCATION: [place] ADMIT DATE: 11/24/2016 Discharge Summary DISCHARGE DATE: 11/24/2016 FAMILY PHYSICIAN: Low Alston MD ATTENDING PHYSICIAN: Zaria Contreras The patient in this hospitalization. PRINCIPAL DIAGNOSIS: Respiratory failure likely secondary to sepsis. SECONDARY DIAGNOSES: 1. Grade 3 astrocytoma for which the patient did not want any treatment and was on hospice. 2. Acute encephalopathy. 3. Type 2 diabetes. 4. Acute respiratory failure. 5. Cellulitis of the bilateral lower extremities. HOSPITAL COURSE: A 71-year-old gentleman who was known to our service from a week ago when he was in the hospital for grade 3 astrocytoma which was diagnosed on an excisional biopsy after craniotomy. The patient refused any sort of treatment for that and was on palliative as well as hospice care. He was transferred to [facility] for this. He was transferred back to our hospital for end of life care. He was admitted, and he was found to be in acute respiratory failure. All the comfort measures were initiated including morphine and supplemental oxygen. The patient in this hospitalization at about 10:53 a.m. on 11/24/2016. MD BUSHRA INGRAM/kevon /[id number] d: 11/25/16 0304 t: 11/25/16 0905, DISCHARGE SUMMARY
--- NOTE | 2016-11-24 09:53 | NUR ---
patient is 71 yo male admitted this am for increasing shortness of breath with oxygen on. c/o chest pain this am, states he started getting nauseated yesterday when the shortness of breath started. patient is in obvious respiratory distress even with oxygen on, 02 sats are in high 70's. patient will take the oxygen out of his nose at times as he states it bothers him. will leave it out briefly, then puts it back. saline lock is started in left antecubital space with 20 ga intracath on 2nd attempt by this nurse , 3rd total attempt. pt jose well but c/o many things while IV attempts made. education is given briefly as documented. patient waves his hand to stop teaching and remindings. pneumatics are not on per OPERATING SYSTEM DESIGNER request for patient comfort. report is given to MARNI Briscoe.
--- NOTE | 2016-11-24 17:25 | NUR ---
Pt. admitted to floor from [facility] transfer at 0835. Admission nurse assessed and started IV in L)AC. Daughter and at bedside. Pt. respirations at 44 on admission with 80% on 6L. Tachy and HTN. Given roxinol, morphine, and ativan by instruction of pallative nurse, Val Tran. Placed on comfort cares and DNR. At 1020 was 82% at 6L, 48 breaths per minute. Pt. dyspnea was much relieved by medications but still tachypneic. Spoke with family and counted out money from safe envelope with security. At 1040, requested more medication for air hunger and when nurse came into room, patient had sat up in bed and said he wanted to get to chair. Was convinced to lay back into bed and when he laid back, he quit breathing abruptly. Checked apical pulse with stethoscope, no heartbeat heard for >60 seconds. Charge nurse, Susannah also listened for full 60. Time of announced as 1053. and daughter (POA) were at bedside. Called Peter MORRIS [phone]. Not a candidate for donation. Kalani davila [place] called at [phone], also stated patient was not a candidate. Called Dr. Contreras, [facility], and Val Tran to notify of . Called housekeeper caregiver and pastoral care. Sent patient to [facility] was notified.
== END 2016-11-24 10:53 | disposition expired | DRG 871 ==
LOC: GMSU 08:38
PROVIDERS: ADMIT Internal Medicine
DX: A41.9 Sepsis, unspecified organism (principal); J96.01 Acute respiratory failure with hypoxia; G93.40 Encephalopathy, unspecified; L03.116 Cellulitis of left lower limb; L03.115 Cellulitis of right lower limb; C71.9 Malignant neoplasm of brain, unspecified; E11.9 Type 2 diabetes mellitus without complications; Z51.5 Encounter for palliative care; Z66 Do not resuscitate; I10 Essential (primary) hypertension; E78.5 Hyperlipidemia, unspecified; Z85.820 Personal history of malignant melanoma of skin; Z87.891 Personal history of nicotine dependence
CPT/HCPCS: J2060; J2270

== ENCOUNTER → 2016-11-24 | Outpatient (CLI) | payer OTHER, MEDICARE | END | disposition disaster alternative care site (69) | LOC: GAMB 08:00 | DX: R06.02 Shortness of breath (principal); F41.9 Anxiety disorder, unspecified; E11.9 Type 2 diabetes mellitus without complications; Z85.841 Personal history of malignant neoplasm of brain | CPT/HCPCS: A0422; A0425; A0427 ==